=== PATIENT | female | born 1995 | race Caucasian/White ===

== ENCOUNTER → 2020-10-04 | Outpatient (CLI) | payer OTHER | LOC: EROP 16:37 | DX: Z01.812 Encounter for preprocedural laboratory examination (principal); Z20.822 Contact with and (suspected) exposure to COVID-19 | CPT/HCPCS: U0002 ==

== ENCOUNTER → 2021-05-10 | Outpatient (CLI) | payer BC | LOC: RAD 17:03 | DX: J20.9 Acute bronchitis, unspecified (principal); J98.01 Acute bronchospasm | CPT/HCPCS: 71046 ==